=== PATIENT | female | born 1945 | race Caucasian/White ===

== ENCOUNTER 2018-09-01 11:52 | Emergency (ER) | payer OTHER ==
[~2018-09-01] VITALS: Ht 154.9 cm; Wt 80.7 kg
[~2018-09-01 11:52] MED LIST: KEFLEX500 MG PO; LOP600 PO; MOTRIN800 MG PO; XARELTO10 M1 PO; XARELTO15 M1 PO
[2018-09-01 12:08] VITALS: Ht 154.9 cm; Wt 80.7 kg
[2018-09-01 14:54] VITALS: BP 152/81
== END 2018-09-01 14:54 | disposition home or self-care (01) ==
LOC: ED 11:52
DX: M79.662 Pain in left lower leg (principal); G57.91 Unspecified mononeuropathy of right lower limb; Z88.8 Allergy status to other drugs, medicaments and biological substances
CPT/HCPCS: Q0092